=== PATIENT | male | born 1960 | race African-American/Black ===

== ENCOUNTER 2023-06-26 21:28 | Emergency (ER) | payer OTHER, SELFPAY ==
--- NOTE | ~2023-06-26 | XR_ITS ---
EXAMINATION: XR chest 1V portable 06/26/2023 22:04 INDICATION: Chest pain PROCEDURE: AP portable chest COMPARISON: No prior studies for comparison. FINDINGS: There is retrocardiac opacification, most likely atelectasis. The cardiomediastinal silhoue tte is within normal limits. There are no pleural effusions. There is no pneumothorax suspected. IMPRESSION: 1: Retrocardiac infiltrate, most likely atelectasis. Reviewed, dictated and finalized at location A.
--- NOTE | ~2023-06-26 | CT_ITS ---
EXAMINATION: CTA chest abdomen pelvis DATE: 06/26/2023 23:03 CDT INDICATION: Chest pain and difficulty breathing. TECHNIQUE: Computed tomographic angiography (CTA) of the chest, abdomen, and pelvis was performed wit hout and with 100 mL Omnipaque-350 intravenous contrast. The dose-length product was 309.82 mGy-cm. M aximum intensity projection 3D-reconstructions of the aorta and other arteries were constructed by katya krishnan technologist on a separate workstation. COMPARISON: None. FINDINGS: CHEST CTA: There is pneumomediastinum. Small left pleural effusion. Mediastinal gas extends into the left suprac lavicular region. No thoracic lymphadenopathy. Study is technically adequate without evidence for pul monary embolism. There are groundglass opacities in the left lower lobe which may represent atelectas is or pneumonia. ABDOMEN AND PELVIS CTA: No significant vascular abnormality. No lymphadenopathy. There is thickening of the esophagus, suspic ious for esophagitis. The liver, pancreas, adrenal glands and kidneys are unremarkable. Spleen is atr ophic and contains calcified granulomas. Gallbladder is present. No free air or free fluid. No acute bone or joint abnormality. IMPRESSION: 1. Pneumomediastinum. 2: Groundglass opacities left lower lobe which may represent atelectasis or pneumonia. 3: Small left pleural effusion. 4: Esophageal thickening, suspicious for esophagitis. Reviewed, dictated and finalized at location A. IMPRESSION: 1. Pneumomediastinum. 2: Groundglass opacities left lower lobe which may represent atelectasis or pn eumonia. 3: Small left pleural effusion. 4: Esophageal thickening, suspicious for esophagitis.
--- NOTE | ~2023-06-26 | XR_ITS ---
Portable chest x-ray Comparison: 06/26/2023 Clinical History: Shortness of breath Findings: Minimal left pleural effusion present with new patchy left basilar airspace disease. Right lung clear. Cardiomediastinal silhouette is stable. Bones and soft tissues are unremarkable. Impression: Minimal left pleural effusion with left basilar atelectasis versus pneumonia. Reviewed, dictated and finalized at [facility]. Impression: Minimal left pleural effusion with left basilar atelectasis versus pneumonia.
--- NOTE | ~2023-06-26 | XR_ITS ---
Portable chest x-ray Comparison: 06/27/2023 at 12:28 AM Clinical History: Tube placement Findings: Endotracheal tube and NG tube are in satisfactory positions. Minimal left pleural effusion present with retrocardiac airspace consolidation. Cardiomediastinal silhouette is stable. Bones and soft tissues are unremarkable. Impression: Support tubes, as above. Left lower lobe consolidation suspicious for pneumonia versus possibly atelectasis. Minimal left pleural effusion. Reviewed, dictated and finalized at location . Impression: Support tubes, as above. Left lower lobe consolidation suspicious for pneumonia versus possibly atelecta sis. Minimal left pleural effusion.
--- NOTE | ~2023-06-26 | XR_ITS ---
Supine and upright views of the abdomen Clinical history: NG tube placement Findings: NG tube in satisfactory position. Bowel gas pattern is nonspecific. No evidence for obstruc tion or free air. No abnormal mass lesion or calcification is seen. Osseous structures are intact. Impression: NG tube in satisfactory position. Reviewed, dictated and finalized at location . Impression: NG tube in satisfactory position.
--- NOTE | ~2023-06-26 | XR_ITS ---
Portable chest x-ray Comparison: 06/27/2023 at 1:08 AM Clinical History: Line placement Findings: Endotracheal tube, NG tube, and right IJ line are in satisfactory positions. Stable left l ower lobe consolidation and minimal left pleural effusion. Right lung remains clear. No pneumothorax. Cardiomediastinal silhouette is stable. Bones and soft tissues are unremarkable. Impression: Support tubes, as above. Stable left lower lobe consolidation, suspicious for pneumonia. Minimal left pleural effusion. Reviewed, dictated and finalized at location . Impression: Support tubes, as above. Stable left lower lobe consolidation, suspicious for pneumonia. Minimal left pleural effusion.
[2023-06-26 21:32] VITALS: BP 139/104; PULSE 81; RESP 14; TEMP 36.1
--- NOTE | 2023-06-26 21:35 | ECG_ITS ---
Measurements Intervals [place] Rate: 78 P: 69 [place]: 129 QRS: 23 QRSD: 86 T: 47 QT: 401 QTc: 458 Interpretive Statements SINUS RHYTHM LEFT ATRIAL ENLARGEMENT VOLTAGE CRITERIA FOR LVH NONSPECIFIC ST-T WAVE ABNORMALITY- LATERAL LEADS BASELINE ARTIFACT- II, III, AVF, V5-V6 BORDERLINE ECG NO PREVIOUS ECG AVAILABLE FOR COMPARISON Electronically Signed On 06-27-2023 6:20:38 CDT by David Hernandez D.O.
[2023-06-26] MEDS: ASPIRIN 81 MG CHEWABLE TABLET 324 MG PO (21:43)
[2023-06-26 21:57] LABS: Basophils Absolute Auto 0.1 K/mm3 (0.0-0.1); Basophils Percent Auto 0.4 % (0.2-1.2); Eosinophils Absolute Auto 0.2 K/mm3 (0-0.3); Hematocrit 35.3 % (42.0-52.0); Hemoglobin 11.1 g/dL (14.0-18.0); Immature Granulocyte Absolute 0.09 K/mm3 (0.00-0.031); Immature Granulocyte Percent A 0.6 % (0-0.5); Lymphocytes Absolute Auto 4.13 K/mm3 (0.9-3.2); Lymphocytes Percent Auto 26.4 % (18.3-44.2); Mean Corpuscular HGB Conc 31.4 g/dl (32-36); Mean Corpuscular Hemoglobin 25.8 pg (26-34); Mean Corpuscular Volume 81.9 fl (80-100); Mean Platelet Volume 10.4 fl (7.4-10.4); Monocytes Absolute Auto 1.1 K/mm3 (0.1-0.6); Monocytes Percent Auto 7.2 % (2.6-8.5); Neutrophils Absolute Auto 10.1 K/mm3 (1.3-6.7); Neutrophils Percent Auto 64.4 % (45.5-73.1); Platelet Count Result 248 k/mm3 (150-375); Red Blood Count 4.31 M/mm3 (4.6-6.20); Red Cell Distribution Width 21.1 % (11.5-14.5); White Blood Count 15.7 K/mm3 (4.5-10.0)
[2023-06-26 22:00] VITALS: O2SAT 100
[2023-06-26 22:09] LABS: Alanine Aminotransferase 24 U/L (6-50); Albumin Level 4.6 g/dL (3.5-5.1); Alkaline Phosphatase 98 U/L (38-126); Anion Gap 9 mmol/L (8-16); Aspartate Amino Transferase 45 U/L (17-59); Bilirubin,Total 1.4 mg/dL (0.2-1.3); Blood Urea Nitrogen 18 mg/dL (9-20); Calcium 9.6 mg/dL (8.4-10.2); Carbon Dioxide 25 mmol/L (22-30); Chloride 104 mmol/L (98-107); Estimated CRCL calculation 88 ml/min; Estimated Glomerular Filt Rate > 60; Glucose 159 mg/dL (65-110); Lipase 89 U/L (23-300); Potassium 3.9 mmol/L (3.4-5.0); Sodium 138 mmol/L (137-145)
[2023-06-26 22:12] LABS: INR 1.1; Partial Thromboplastin Time 24.4 Seconds (22.3-36.8); Prothrombin Time 14.4 Seconds (11.1-14.7)
[2023-06-26 22:19] LABS: Troponin I 0.015 ng/mL (0.000-0.034)
[2023-06-26 22:33] VITALS: O2SAT 100
--- NOTE | 2023-06-26 22:47 | ED.GENADULT ---
HPI - General Adult General Chief complaint: Chest Pain Stated complaint: nausea, vomiting, bright red vomit Time Seen by Provider: 06/26/23 21:43 History of Present Illness HPI narrative: This is a 62-year-old male presenting ED with chief complaint of chest pain, difficulty breathing, and hematemesis. Symptoms started earlier today. patient denies fevers chills productive cough, lower extremity edema. Patient denies history of cirrhosis or liver failure. No history of GI bleed. No anticoagulants or blood thinners. Patient is a daily drinker. last drink yesterday. Related Data Allergies Allergy/AdvReac Type Severity Reaction Status Date / Time No Known Allergies Allergy Verified 06/26/23 21:40 Exam Narrative: APPEARANCE: Patient appears-ill, diaphoretic Head: atraumatic. EYES: EOMI, NOSE: Atraumatic NECK: Trachea midline RESPIRATORY: mild tachypnea clear lung sounds CARDIOVASCULAR: tachycardic, no peripheral edema ABDOMINAL: soft nontender MUSCULOSKELETAl: No obvious deformities NEURO: Alert. Moving 4/4 extremities SKIN:: diaphoretic PSYCHIATRIC: Normal affect Course Vital Signs Vital signs: Vital Signs Temperature 97 F L 06/26/23 21:32 Pulse Rate 81 06/26/23 21:32 Respiratory Rate 14 06/26/23 21:32 Blood Pressure 139/104 H 06/26/23 21:32 Temperature 97 F L 06/26/23 21:32 Pulse Rate 81 06/26/23 21:32 Respiratory Rate 14 06/26/23 21:32 Blood Pressure 139/104 H 06/26/23 21:32 Pulse Oximetry 100 06/26/23 22:33 Oxygen Delivery Room Air 06/26/23 22:33 Medical Decision Making [facility] Narrative Medical decision making narrative: -Course: 62-year-old male presenting with hematemesis chest pain difficulty breathing. Patient is ill-appearing. Stat CTA showed pneumomediastinum. Presentation concerning for ruptured esophagus. Patient given fluid resuscitation, pip/tazo, vancomycin and fluconazole. Patient given pain medication and anxiolysis. Patient's heart rate and continue to increase until is in the 140s. Patient is becoming agitated and has ripped out several IVs. Decision was made to intubate. Patient was intubated without complication. A right internal jugular central catheter was placed. Patient will be flown to [facility] for cardiothoracic evaluation. family was updated on the patient's critical condition -DDX includes but is not limited to: esophageal rupture /varices/ gerd, pneumonia, PE, ACS, dissection, -Co-morbidities complicating care: alcoholism drug use -Social determinants of health: daily drinker, lives with family, history of cocaine use but denies recent use -Hx from independent Sources: @bedside -Independent interpretation of studies: White count 15.7. Hemoglobin 11. Lactic 4.9. CT chest abdomen pelvis showed pneumomediastinum with left pleural effusion. Multiple chest x-rays confirming tube locations. Worsening infiltrates on the left. -Discussion of Management/Consultants: [facility]- Giorgio CT sx - Declined due to pt volume ANA PAULA Dudley - Declined due to pt volume Liudmila Roland - Accepted. -Interventions: 2 L normal saline, Dilaudid, Pepcid, reglan, piptazo, vancomycin, fluconazole etomidate, rocuronium, Dilaudid, Ativan fentanyl and Versed drip -Shared decision making / Disposition: flown emergently to [facility] for CT evaluation Vital Signs Vital Signs: Vital Signs Temperature 97 F L 06/26/23 21:32 Pulse Rate 81 06/26/23 21:32 Respiratory Rate 14 06/26/23 21:32 Blood Pressure 139/104 H 06/26/23 21:32 Temperature 97 F L 06/26/23 21:32 Pulse Rate 81 06/26/23 21:32 Respiratory Rate 14 06/26/23 21:32 Blood Pressure 139/104 H 06/26/23 21:32 Pulse Oximetry 100 06/26/23 22:33 Oxygen Delivery Room Air 06/26/23 22:33 Lab Data 06/26/23 21:49 06/26/23 21:49 Labs: Lab Results 06/26/23 Range/Units 21:49 WBC 15.7 H (4.5-10.0) K/mm3 RBC 4.31 L (
[2023-06-26] MEDS: HYDROmorphone HCL INJ (*CRX) 2 MG/ML VIAL 0.5 MG IV PUSH (23:05)
[2023-06-26] MEDS: METOCLOPRAMIDE HCL INJ 10 MG/2 ML VIAL IV PUSH (23:08)
[2023-06-26] MEDS: PANTOPRAZOLE SODIUM IV 40 MG VIAL 80 MG IV PUSH (23:08)
[2023-06-26 23:11] LABS: Ethanol < 10 mg/dL (<10)
[2023-06-26 23:14] LABS: Magnesium 1.9 mg/dL (1.6-2.3); Phosphorus 2.9 mg/dL (2.5-4.5)
[2023-06-26 23:21] LABS: NT Pro B Type Natriuretic Pept 97 pg/mL (19.9-100)
[2023-06-26] MEDS: SODIUM CHLORIDE 0.9% IV 2,000 ML 999 ML IV CONT (23:31)
[2023-06-26] MEDS: PIPERACILLN/TAZ 3.375GM/NS50ML 3.375 GM/50 ML BAG IVPB (23:33)
--- NOTE | 2023-06-26 23:39 | PC.NURSE ---
2330 Pt given and additional 0.5 mg of Dilaudid via IV push per Dr. Rivera verbal order. 2330 pt given an additional 1 Liter of NS than what is documented in the MAR. This RN verified with Dr. Rivera that the patient is to receive 3 L total of NS. 3 L are running at this time through pt's 18 g IV in the left forearm.
[2023-06-26 23:43] VITALS: BP 108/83; PULSE 118; RESP 26; O2SAT 96
[2023-06-26 23:51] LABS: Lactic Acid Reflex 4.9 mmol/L (0.7-2.0)
--- NOTE | 2023-06-26 23:55 | PC.NURSE ---
2350 Pt still reporting 10/10 chest pain, 1 mg of dilaudid administered via IV push per Dr. Rivera verbal order.
[2023-06-27] MEDS: FLUCONAZOLE 400 MG/NACL 200 ML 400 MG/200 ML BAG 100 MG IVPB (00:09)
--- NOTE | 2023-06-27 00:41 | PC.NURSE ---
0015 2 mg of ativan administered IV psuh per Dr. Rivera verbal order.
[2023-06-27 00:48] LABS: MRSA (PCR) NOT DETECTED (NOT DETECTE)
--- NOTE | 2023-06-27 01:10 | PC.NURSE ---
Decision to intubate pt made by Dr. Rivera at 0055. 0058 20 mg Etomidate administered IV push via Dr. Rivera verbal order. 0058 100 mg Rocuronium administered IV push via Dr. Rivera verbal order. 0100 Pt is intubated, 7.5 ETT, 22 at the lip, positive color change, equal chest rise and fall. 0101 OG tube placed by Dr. Rivera. 0103 2 mg Ativan and 1 mg Dilaudid administered IV push via Dr. Rivera verbal order. 0104 River catheter placed.
--- NOTE | 2023-06-27 01:25 | PC.NURSE ---
Called Liudmila BALLESTEROS to give an update on pt. Spoke with Gita and informed her the pt is intubated, that a central line has been placed, and pt will be given a fentanyl and versed drip.
[2023-06-27 01:32] VITALS: PULSE 137; RESP 14
[2023-06-27] MEDS: FENTANYL 2,500MCG/NS250ML(*CRX 2,500 MCG/250 ML BAG IV CONT (01:32)
[2023-06-27 01:35] VITALS: PULSE 126; RESP 16
[2023-06-27] MEDS: MIDAZOLAM 100MG/NS 100ML(*CRX) 100 MG/100 ML BAG IV CONT (01:35)
[2023-06-27 01:42] VITALS: BP 139/104; PULSE 134; RESP 17; TEMP 36.3; O2SAT 100
[2023-06-27 01:44] VITALS: PULSE 132; RESP 17
[2023-06-27 01:45] VITALS: PULSE 132; RESP 17
[2023-06-27 01:59] VITALS: BP 139/104; PULSE 136; RESP 14; O2SAT 100
[2023-06-27 02:31] LABS: Reflex Lactic Acid Yes or No Add Lactic
--- NOTE | 2023-08-09 19:04 | ED.GENADULT ---
HPI - General Adult General Chief complaint: Chest Pain Stated complaint: nausea, vomiting, bright red vomit Time Seen by Provider: 06/26/23 21:43 Related Data Allergies Allergy/AdvReac Type Severity Reaction Status Date / Time No Known Allergies Allergy Verified 06/26/23 21:40 Course Vital Signs Vital signs: Vital Signs Temperature 97 F L 06/26/23 21:32 Pulse Rate 81 06/26/23 21:32 Respiratory Rate 14 06/26/23 21:32 Blood Pressure 139/104 H 06/26/23 21:32 Temperature 97.3 F L 06/27/23 01:42 Pulse Rate 136 H 06/27/23 01:59 Respiratory Rate 14 06/27/23 01:59 Blood Pressure 139/104 H 06/27/23 01:59 Pulse Oximetry 100 06/27/23 01:59 Oxygen Delivery Mechanical Ventilation 06/27/23 01:00 Fraction of Inspired Oxygen 50 06/27/23 01:00 Procedures Central Line Placement Right IJ: Central Line Date: 06/26/23 Performed Emergently - Given emergent patient condition, temporal constraints may have precluded informed consent.: Yes Time Out Performed: Yes Patient Placed on Monitor/Pulse Ox: Yes Max. Sterile Barrier Technique: Caps, large sterile sheet and hand hygiene Central Line Prep: 2% chlorhexidine scrub Technique: US-Guided Ultrasound Used for Placement: Yes Central Line Lumen Inserted: triple Post Procedure: sutured in place, good blood return, all ports aspirated, flushed, capped and sterile dressing applied Post Procedure X-Ray: tip of catheter in good position and no pneumothorax seen Patient Tolerated Procedure: well Complications: none Intubation Intubation #1: Intubation Date: 06/26/23 Time out performed: Yes sedative: Etomidate Mg Given: 20 paralytic: Rocuronium Mg Given: 100 Laryngoscope: Haim Tube Size (cm): 7.5 Method of Intubation: orotracheal Number of Attempts: 1 Tube Secured Depth (cm): 23 Tube Secured Location: lips Tube Placement Confirmation: visualized tube passing through cords Patient Tolerated Procedure: well Intubation Complications: none Medical Decision Making Vital Signs Vital Signs: Vital Signs Temperature 97 F L 06/26/23 21:32 Pulse Rate 81 06/26/23 21:32 Respiratory Rate 14 06/26/23 21:32 Blood Pressure 139/104 H 06/26/23 21:32 Temperature 97.3 F L 06/27/23 01:42 Pulse Rate 136 H 06/27/23 01:59 Respiratory Rate 14 06/27/23 01:59 Blood Pressure 139/104 H 06/27/23 01:59 Pulse Oximetry 100 06/27/23 01:59 Oxygen Delivery Mechanical Ventilation 06/27/23 01:00 Fraction of Inspired Oxygen 50 06/27/23 01:00 Lab Data 06/26/23 21:49 06/26/23 21:49 Labs: Lab Results 06/26/23 06/26/23 06/26/23 Range/Units 21:49 23:23 23:32 WBC 15.7 H (4.5-10.0) K/mm3 RBC 4.31 L (4.6-6.20) M/mm3 Hgb 11.1 L (14.0-18.0) g/dL Hct 35.3 L (42.0-52.0) % MCV 81.9 (80-100) fl MCH 25.8 L (26-34) pg MCHC 31.4 L (32-36) g/dl RDW 21.1 H (11.5-14.5) % Plt Count 248 (150-375) k/mm3 MPV 10.4 (7.4-10.4) fl Immature Gran % (Auto) 0.6 H (0-0.5) % Neut % (Auto) 64.4 (45.5-73.1) % Lymph % (Auto) 26.4 (18.3-44.2) % [place] % (Auto) 7.2 (2.6-8.5) % Eos % (Auto) 1.0 (0-4.4) % Baso % (Auto) 0.4 (0.2-1.2) % Lymph # (Auto) 4.13 H (0.9-3.2) K/mm3 [place] # (Auto) 1.1 H (0.1-0.6) K/mm3 Eos # (Auto) 0.2 (0-0.3) K/mm3 Baso # (Auto) 0.1 (0.0-0.1) K/mm3 Abs Immat Gran (auto) 0.09 H (0.00-0.031) K/mm3 Absolute Neuts (auto) 10.1 H (1.3-6.7) K/mm3 Absolute Nucleated RBC 0.000 (0.0-0.012) K/mm3 Nucleated RBC % 0.0 (0.0-0.2) % PT 14.4 (11.1-14.7) Seconds INR 1.1 APTT 24.4 (22.3-36.8) Seconds Sodium 138 (137-145) mmol/L Potassium 3.9 (3.4-5.0) mmol/L Chloride 104 (98-107) mmol/L Carbon Dioxide 25 (22-30) mmol/L
== END 2023-06-27 01:59 | disposition short-term general hospital (02) ==
PROVIDERS: Emergency Provider Emergency Medicine
DX: K22.3 Perforation of esophagus (principal); R94.31 Abnormal electrocardiogram [ECG] [EKG]; R91.8 Other nonspecific abnormal finding of lung field; J98.2 Interstitial emphysema
CPT/HCPCS: 31500; 36415; 36556; 71045; 71275; 74174; 80053; 80307; 83605; 83690; 83735; 83880; 84100; 84484; 85025; 85610; 85730; 86850; 86900; 86901; 87641; 93005; 96365; 96375; 99285; A9270; C1751; C9113; J1170; J1450; J2060; J2250; J2543; J2765; J3010; J7030; Q9967

== ENCOUNTER 2023-10-10 14:11 | Emergency (ER) | payer OTHER, SELFPAY ==
[2023-10-10] VITALS (7 sets, daily range): BP systolic 128–144; BP diastolic 96–105; PULSE 104–110; RESP 20–26; TEMP 36.2; O2SAT 95–100
--- NOTE | ~2023-10-10 | CT_ITS ---
EXAMINATION: CT diagnostic chest w con DATE: 10/10/2023 18:02 INDICATION: Loculated effusion TECHNIQUE: Computed tomography (CT) of the chest was performed with 100 mL Omnipaque-350 intravenous contrast. Automated exposure control and iterative reconstruction technique were employed. The dose-l ength product was 144.86 mGy-cm. COMPARISON: X-ray chest, same date; CTA cap 06/26/2023. FINDINGS: CHEST: Thoracic aorta: No significant dilation or calcification. Lung parenchyma and airways: Left hilar, segmental inferior upper lobe, and lobar lower lobe consolid ation. Subsegmental foci of consolidation in the peripheral right lower lobe and posterior right uppe r lobe. Patent airways. Left lower lobe air bronchograms. Thoracic inlet, axillae and chest wall: No thyroid mass. Peripherally enhancing, tubular low density in the posterolateral chest wall between the left eighth and ninth ribs, extending from the lobulated portion of the left pleural collection, to the skin surface. No axillary lymphadenopathy. Mediastinum: Multiple enlarged mediastinal and bilateral hilar lymph nodes. Calcified subcarinal lymp h node. Heart and pericardium: Mild cardiomegaly. No pericardial effusion. Coronary artery calcifications: Mild. Pleura: Small right and moderate left pleural fluid collections with peripheral enhancement. Multiple gas bubbles in the left pleural collection. Lobular margin along the lateral aspect of the left pleu ral collection extending towards the chest wall. Upper abdomen: No significant finding. Thoracic bones: No acute osseous finding in the chest. IMPRESSION: Segmental left upper lobe and lobar left lower lobe consolidation with scattered subsegmental areas o f consolidation in the right lung, concerning for multifocal pneumonia. Moderate left and small right pleural effusions with peripheral enhancement. Empyema should be consid ered in the differential. Fluid-filled and peripherally enhancing skin tract extending from the left pleural collection to the skin surface, may represent a spontaneous drainage site or procedure tract. The gas within the left p leural collection may be secondary to infection or recent procedure. Mediastinal lymphadenopathy. Reviewed, dictated and finalized at location K. IMPRESSION: Segmental left upper lobe and lobar left lower lobe consolidation with scattere d subsegmental areas of consolidation in the right lung, concerning for multifo nelida pneumonia. Moderate left and small right pleural effusions with peripheral enhancement. Em pyema should be considered in the differential. Fluid-filled and peripherally enhancing skin tract extending from the left pleu ral collection to the skin surface, may represent a spontaneous drainage site o r procedure tract. The gas within the left pleural collection may be secondary to infection or recent procedure. Mediastinal lymphadenopathy.
--- NOTE | ~2023-10-10 | XR_ITS ---
EXAMINATION: XR chest 2V DATE: 10/10/2023 14:46 INDICATION: Shortness of breath. Recent left chest tube removal TECHNIQUE: PA and lateral views of the chest were obtained. COMPARISON: Chest radiograph dated 06/27/2023 FINDINGS: Opacities in the left mid and lower lung zone which include a small left pleural effusion with locula carla component along the posterior left mid to lower lung zone on the lateral projection. There are al so patchy airspace opacities consistent with associated atelectasis and/or pneumonia. Significant sma ller right pleural effusion with mild streaky right basilar atelectasis. No pneumothorax. Heart size is normal. IMPRESSION: 1. Small bilateral pleural effusions larger and with likely loculated component on the left foot 2. Patchy airspace opacities in the left mid and lower lung zone which could represent associated ate lectasis and/or pneumonia. Reviewed, dictated and finalized at location B. IMPRESSION: 1. Small bilateral pleural effusions larger and with likely loculated component on the left foot 2. Patchy airspace opacities in the left mid and lower lung zone which could re present associated atelectasis and/or pneumonia.
--- NOTE | 2023-10-10 14:21 | ECG_ITS ---
Test Date: 2023-10-10 14:25:03 Measurements Intervals [place] Rate: 102 P: 64 VT: 135 QRS: 14 QRSD: 86 T: 35 QT: 347 QTc: 452 Interpretive Statements SINUS TACHYCARDIA WITH OCCASIONAL SUPRAVENTRICULAR PREMATURE COMPLEXES BI ATRIAL ENLARGEMENT [-0.15mV P-WAVE IN V1/V2] BORDERLINE ECG No previous ECG available for comparison Electronically Signed On 10-11-2023 07:17:46 CDT by Chu Amaya M.D.
[2023-10-10 14:49] LABS: Basophils Percent Auto 0.4 % (0.2-1.2); Eosinophils Absolute Auto 0.1 K/mm3 (0-0.3); Eosinophils Percent Auto 0.5 % (0-4.4); Hematocrit 34.7 % (42.0-52.0); Hemoglobin 10.9 g/dL (14.0-18.0); Immature Granulocyte Absolute 0.03 K/mm3 (0.00-0.031); Immature Granulocyte Percent A 0.3 % (0-0.5); Lymphocytes Absolute Auto 2.49 K/mm3 (0.9-3.2); Lymphocytes Percent Auto 25.6 % (18.3-44.2); Mean Corpuscular HGB Conc 31.4 g/dl (32-36); Mean Corpuscular Hemoglobin 26.8 pg (26-34); Mean Corpuscular Volume 85.3 fl (80-100); Mean Platelet Volume 9.4 fl (7.4-10.4); Monocytes Absolute Auto 0.7 K/mm3 (0.1-0.6); Monocytes Percent Auto 7.6 % (2.6-8.5); Neutrophils Absolute Auto 6.4 K/mm3 (1.3-6.7); Neutrophils Percent Auto 65.6 % (45.5-73.1); Platelet Count Result 516 k/mm3 (150-375); Red Blood Count 4.07 M/mm3 (4.6-6.20); Red Cell Distribution Width 18.6 % (11.5-14.5); White Blood Count 9.7 K/mm3 (4.5-10.0)
[2023-10-10 14:58] LABS: Alanine Aminotransferase 261 U/L (6-50); Alkaline Phosphatase 377 U/L (38-126); Anion Gap 5 mmol/L (4-12); Aspartate Amino Transferase 152 U/L (17-59); Bilirubin,Total 0.6 mg/dL (0.2-1.3); Blood Urea Nitrogen 12 mg/dL (9-20); Carbon Dioxide 28 mmol/L (22-30); Chloride 103 mmol/L (98-107); Estimated CRCL calculation 92 ml/min; Estimated Glomerular Filt Rate > 60; Glucose 139 mg/dL (65-110); Potassium 4.3 mmol/L (3.4-5.0); Sodium 136 mmol/L (137-145)
[2023-10-10 17:29] LABS: Lactic Acid Reflex 1.8 mmol/L (0.7-2.0)
[2023-10-10] MEDS: cefTRIAXone 2 GM/NS 100 ML 2 GM/100 ML BAG IVPB (18:06)
[2023-10-10 18:15] LABS: Influenza A QL RT-PCR Negative (Negative); Influenza B QL RT-PCR Negative (Negative); RSV RNA, RT-PCR Negative (Negative); SARS-CoV-2 RNA PCR Negative (Negative)
--- NOTE | 2023-10-10 18:32 | ED.GENADULT ---
HPI - General Adult General Chief complaint: Shortness of Breath/Dyspnea Stated complaint: recent chest tube dyspnea Time Seen by Provider: 10/10/23 16:23 History of Present Illness HPI narrative: 62-year-old male presents emergency department for evaluation for worsening shortness of breath. Patient has had a esophageal rupture in June and had an extended stay at [facility], patient was then transferred to [place]. While patient was emergency he did have a left-sided thoracostomy tube. Patient had the thoracostomy tube removed at [place] approximately 2 weeks ago. Patient states he was discharged on Saturday. Patient states this being discharged he has had worsening left-sided chest pain and shortness of breath. Patient has been changing his dressing frequently but states he has had. On discharge from the thoracostomy site Related Data Home Medications Medication Instructions Recorded Confirmed amoxicillin 500 mg capsule mg 10/10/23 10/10/23 atenolol 25 mg tablet mg 10/10/23 ciprofloxacin HCl 500 mg tablet mg 10/10/23 magnesium oxide 400 mg (241.3 mg mg 10/10/23 magnesium) tablet pantoprazole 40 mg tablet,delayed mg PO 10/10/23 release pyridoxine (vitamin B6) 50 mg mg 10/10/23 tablet thiamine HCl (vitamin B1) 100 mg mg 10/10/23 tablet (Vitamin B-1) zinc sulfate 50 mg zinc (220 mg) mg 10/10/23 capsule Allergies Allergy/AdvReac Type Severity Reaction Status Date / Time No Known Allergies Allergy Verified 10/10/23 17:53 Review of Systems Review of Systems: All systems reviewed & are unremarkable except as noted in HPI and below Exam Narrative: APPEARANCE: Well appearing, no pain, no distress, well-nourished. HEAD: normocephalic, atraumatic. EYES: PERRLA/EOMI, conjunctivae clear. NOSE: Normal no drainage EARS:TMS clear with good light reflex. THROAT: Pharynx clear, no exudate. NECK: Supple. No adenopathy, no masses. RESPIRATORY: Airway patent, respirations nonlabored. Clear to auscultation bilaterally, no rales, rhonchi, wheezing. CARDIOVASCULAR: Regular rate and rhythm without murmurs rubs or gallops. ABDOMINAL: Soft, nontender, nondistended, normal bowel sounds MUSCULOSKELETAL: Moves all extremities. Strength/ROM intact, No edema, No calf tenderness. NEURO: Alert. Cranial nerves II through XII intact. Good gait. Good coordination SKIN: Prelim discharge from chest tube site on left chest, no crepitus Course Vital Signs Vital signs: Vital Signs Temperature 97.2 F L 10/10/23 14:16 Pulse Rate 107 H 10/10/23 14:16 Respiratory Rate 22 H 10/10/23 14:16 Blood Pressure 136/98 H 10/10/23 14:16 Pulse Oximetry 98 10/10/23 14:16 Oxygen Delivery Room Air 10/10/23 14:16 Temperature 97.2 F L 10/10/23 14:16 Pulse Rate 106 H 10/10/23 17:03 Respiratory Rate 26 H 10/10/23 17:03 Blood Pressure 128/96 H 10/10/23 17:03 Pulse Oximetry 100 10/10/23 17:03 Oxygen Delivery Room Air 10/10/23 17:00 Medical Decision Making MDM Narrative Medical decision making narrative: 62-year-old male presents emergency department for evaluation of worsening left-sided chest pain. Patient is afebrile with no leukocytosis and a stable hemoglobin of 10.9. Patient does have some mild elevations in his transaminases. Patient was negative for influenza RSV and for COVID. Chest x-ray showed concern for loculated effusion. CT with contrast was ordered and did confirm empyema. I discussed the case with the hospitalist at [facility] and patient was accepted for transfer. Hospitalist stated that there was an older CT scan already confirming a worsening empyema. Updated the patient on the results of the workup and plan for transfer. All questions concerns were addressed. Prior to transfer both the wound and blood were cultured and patient was started on Rocephin is a throw and vancomycin. Differential Diagnosis Differential Diagnosis: Pneumonia, COPD, pneumothorax, pulmonary embolism
[2023-10-10] MEDS: AZITHROMYCIN 500 MG/NS 250 ML 500 MG/250 ML BAG 250 MG IVPB (18:50)
[2023-10-10 20:09] LABS: MRSA (PCR) DETECTED (NOT DETECTE)
== END 2023-10-10 19:15 | disposition short-term general hospital (02) ==
PROVIDERS: Emergency Medicine; Emergency Provider Emergency Medicine; PCP Family Medicine
DX: J86.9 Pyothorax without fistula (principal); Z20.822 Contact with and (suspected) exposure to COVID-19; R91.8 Other nonspecific abnormal finding of lung field; R00.0 Tachycardia, unspecified; I49.1 Atrial premature depolarization
CPT/HCPCS: 36415; 71046; 71260; 80053; 83605; 85025; 87040; 87070; 87077; 87181; 87205; 87637; 87641; 93005; 96365; 96367; 99285; J0456; J0696; Q9967

== ENCOUNTER 2023-11-07 21:40 | Emergency (ER) | payer OTHER, SELFPAY ==
[2023-11-07] VITALS (11 sets, daily range): BP systolic 92; BP diastolic 78; PULSE 100–132; RESP 14–22; TEMP 36.1; O2SAT 100
--- NOTE | ~2023-11-07 | XR_ITS ---
EXAMINATION: XR chest port-a-cath/central DATE: 11/08/2023 03:14 INDICATION: Central line placement TECHNIQUE: frontal view of the chest was obtained. COMPARISON: Chest radiograph and CT dated 11/07/2023 FINDINGS: Endotracheal tube tip 2.1 cm above the reggie. Left internal jugular central venous catheter with dis salvador tip at the cephalad-most superior vena cava with likely along the lateral wall. Improving aeration in the left mid and upper lungs with decreasing size of a still large left pleural effusion with associated atelectasis. Persistent small right pleural effusion. Diffuse increased int erstitial pattern throughout the right lung visualized portion of the left lung most likely increasin g pulmonary edema although differential includes pneumonia. Mild cardiomegaly. IMPRESSION: 1. Left internal jugular central venous catheter with distal tip in the proximal superior vena cava a long the lateral wall. If extended placement is anticipated would consider withdrawal by 1-[address] [place]ana the tip at the junction of the left brachiocephalic vein and superior vena cava to reduce risk of potential pressure erosion at the wall of the superior vena cava. 2. Unchanged small right and decreasing still large left pleural effusions with improving aeration in the left mid and upper lung. 3. Opacities throughout both lungs which could represent pulmonary edema, pneumonia or likely combina tion thereof. 4. Cardiomegaly . Reviewed, dictated and finalized at location A. IMPRESSION: 1. Left internal jugular central venous catheter with distal tip in the proxima l superior vena cava along the lateral wall. If extended placement is anticipat ed would consider withdrawal by 1-[address] the tip at the junction of the left brachiocephalic vein and superior vena cava to reduce risk of potential pr essure erosion at the wall of the superior vena cava. 2. Unchanged small right and decreasing still large left pleural effusions with improving aeration in the left mid and upper lung. 3. Opacities throughout both lungs which could represent pulmonary edema, pneum onia or likely combination thereof. 4. Cardiomegaly .
--- NOTE | ~2023-11-07 | CT_ITS ---
EXAMINATION: CTA chest PE protocol DATE: 11/07/2023 23:41 INDICATION: intubated; elev dimer; empyema TECHNIQUE: Computed tomography angiography (CTA) of the chest was performed with 100 mL Omnipaque-350 intravenous contrast timed to evaluate the pulmonary arteries. Coronal maximum intensity projection 3D-reconstructions were created by the technologist. The dose-length product (DLP) was 236.95 mGy-cm. Automated exposure control and iterative reconstruction technique were employed. COMPARISON: 10/10/2023. FINDINGS: Exam limited by motion artifact predominantly in the right lung and beam hardening from arm down posi tioning. Lung parenchyma and airways: Complete left lung consolidation with volume loss. Patchy areas of conso lidation, tree-in-bud opacities and centrilobular nodules in the right lung. Scattered airway debris in the right lung. Opacification of most of the left lung bronchial tree. The endotracheal tube termi nates 5 mm above the reggie. Pleura: Mild bilateral pleural thickening and enhancement. Small bilateral pleural fluid collections. Thoracic inlet, axillae and chest wall: Persistent soft tissue swelling over the left lateral chest. Thoracic aorta: No significant dilation. No dissection. Mediastinum: Mediastinal and right hilar lymphadenopathy. The left hilar nodes are obscured by atelec tatic lung. Heart and pericardium: Mild cardiomegaly. Coronary artery calcifications: Absent. Upper abdomen: No significant finding. Bones: No acute osseous finding. Partial left seventh rib resection. Pulmonary arteries: Study quality: Motion artifact limits evaluation of the right lung subsegmental p ulmonary arteries. No pulmonary emboli detected. IMPRESSION: Pulmonary opacities in the right lung most consistent with infection. Combination of atelectasis and suspected infectious consolidation results in complete left lung opacification. Airway secretions wit h opacification of most of the left bronchial tree concerning for mucous plugging. Small bilateral pleural effusions with pleural thickening and enhancement concerning for empyema. Mediastinal lymphadenopathy. Motion limits evaluation of the right lung subsegmental arteries. No pulmonary embolus detected in th e remaining adequately visualized pulmonary arteries. Persistent soft tissue swelling over the left lateral chest. Reviewed, dictated and finalized at location K. IMPRESSION: Pulmonary opacities in the right lung most consistent with infection. Combinati on of atelectasis and suspected infectious consolidation results in complete le ft lung opacification. Airway secretions with opacification of most of the left bronchial tree concerning for mucous plugging. Small bilateral pleural effusions with pleural thickening and enhancement brandyn rning for empyema. Mediastinal lymphadenopathy. Motion limits evaluation of the right lung subsegmental arteries. No pulmonary embolus detected in the remaining adequately visualized pulmonary arteries. Persistent soft tissue swelling over the left lateral chest.
--- NOTE | ~2023-11-07 | CT_ITS ---
EXAMINATION: CT brain wo con DATE: 11/07/2023 23:33 INDICATION: AMS; hypertensive . TECHNIQUE: Computed tomography (CT) of the head was performed without intravenous contrast. The mA wa s adjusted according to patient size. Iterative reconstruction technique was employed. The dose-lengt h product was 529.67 mGy-cm. COMPARISON: None. FINDINGS: No acute intracranial hemorrhage or extra-axial fluid collection. No hydrocephalus, mass, or herniation. Hypodensity in the left posterior parietal lobe, with loss of tan-white junction and the suggestion of volume loss. No significant associated gyral swelling. Unremarkable dural venous sinus attenuation. No acute osseous abnormality. Right mastoid fluid, the remaining aerated spaces are clear. Atherosclerotic intracranial calcifications. Mild bilateral basal ganglia calcification. 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 No compari sons are available. MR of the brain would be helpful for more accurate timing. Otherwise, no concerning intracranial process detected. Reviewed, dictated and finalized at location K. IMPRESSION: Presumably chronic left posterior parietal infarct with early changes of enceph alomalacia. No comparisons are available. MR of the brain would be helpful for more accurate timing. Otherwise, no concerning intracranial process detected.
--- NOTE | ~2023-11-07 | XR_ITS ---
EXAMINATION: XR chest 1V portable Exam Date/Time: 11/07/2023 22:15 CDT HISTORY: intubated, AMS; confirm tube placement Comparison: 10/10/2023. RESULT: Lines, tubes, and devices: Endotracheal tube terminating 3.4 cm above the reggie. Lungs and pleura: Complete opacification of the left hemithorax. Mild reticular opacities and patchy ground glass opacities in the left lung. Mild right costophrenic angle blunting. Cardiomediastinal silhouette: Stable. Other: No acute osseous or upper abdominal finding. IMPRESSION: Endotracheal tube terminates 3.4 cm above the reggie. Complete left hemithorax opacification, may represent atelectasis with mucous plugging. Large left pl eural effusion could appear similarly. Interstitial edema. Small right pleural effusion . Reviewed, dictated and finalized at [facility]. IMPRESSION: Endotracheal tube terminates 3.4 cm above the reggie. Complete left hemithorax opacification, may represent atelectasis with mucous p lugging. Large left pleural effusion could appear similarly. Interstitial edema. Small right pleural effusion .
--- NOTE | 2023-11-07 21:44 | ECG_ITS ---
Test Date: 2023-11-07 21:48:08 Measurements Intervals [place] Rate: 129 P: 67 [place]: 127 QRS: 70 QRSD: 86 T: 78 QT: 330 QTc: 484 Interpretive Statements SINUS TACHYCARDIA WITH OCCASIONAL SUPRAVENTRICULAR PREMATURE COMPLEXES LEFT ATRIAL ABNORMALITY VOLTAGE CRITERIA FOR LVH NONSPECIFIC ST & T-WAVE ABNORMALITY- INF/LAT LEADS ABNORMAL ECG Compared to ECG 10/10/2023 14:25:03 Left ventricular hypertrophy now present Electronically Signed On 11-08-2023 06:21:44 CDT by David Hernandez D.O.
[2023-11-07 21:45] LABS: Glucose Point of Care 199 mg/dl (65-105)
--- NOTE | 2023-11-07 21:46 | ED.SOB ---
HPI - SOB/Dyspnea General Chief Complaint: Shortness of Breath/Dyspnea Stated Complaint: APENIC WITH A PULSE Time Seen by Provider: 11/07/23 21:42 Source: family ( Dionne) and EMS Mode of arrival: EMS Limitations: physical limitation and clinical condition History of Present Illness HPI Narrative: Patient presents via EMS intubated and being assisted with ventilation by BVM and with IO in lower extremity. History of respiratory issues (initially unknown by EMS). Lives with family but unclear time course. Reportedly on home O2. Found to be agonally breathing. 7.5 ETT placed by EMS at 21cm at the teeth after receiving 20mg etomidate and 10mg Versed. Initial BP 200/100 with occasional PVCs. Family and EMR provide collateral information. He had been seen in the ED and transferred to [facility] earlier this year because in June he had an esophageal rupture. History of an empyema for which chest tube placed and trach performed. Had been discharged to a facility 10/08/23 and then went home briefly before re-presenting to the ED at [facility] and being transferred again to [facility] for empyema. Had procedure performed (possibly VATS with rib resection by 's description). His doctor at [facility] was Ryan (spelling?), doesn't know what speciality. He was discharged to facility again and recently discharged home where he has been receiving PT and home health care services through [facility]. Recent diagnosis lung cancer. Patient saw a computer technology instructor/oncologist in this area today (name unknown) and was told his oxygen saturation was low so was advised his supplemental O2 be moved from 3LPM to 5LPM. Plans for an upcoming PET scan. He declined thoughout the day and fell over per who states she started CPR - unclear if he was breathing or had a pulse. Related Data Home Medications Medication Instructions Recorded Confirmed amoxicillin 500 mg capsule mg 10/10/23 10/10/23 atenolol 25 mg tablet mg 10/10/23 ciprofloxacin HCl 500 mg tablet mg 10/10/23 magnesium oxide 400 mg (241.3 mg mg 10/10/23 magnesium) tablet pantoprazole 40 mg tablet,delayed mg PO 10/10/23 release pyridoxine (vitamin B6) 50 mg mg 10/10/23 tablet thiamine HCl (vitamin B1) 100 mg mg 10/10/23 tablet (Vitamin B-1) zinc sulfate 50 mg zinc (220 mg) mg 10/10/23 capsule Allergies Allergy/AdvReac Type Severity Reaction Status Date / Time No Known Allergies Allergy Verified 10/10/23 17:53 [facility] Past Medical History Medical History (Updated 11/10/23 @ 19:16 by Mary Milian MD) 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 EYES: Non injected, non icteric ENT: Nares clear, no rhinorrhea or epistaxis. ETT in place. Front tooth chipped. NECK: Supple. Well healed tracheostomy scar. CHEST: Scar(s) on left chest from prior chest tube. Coarse breath sounds bilaterally. HEART: Tachycardic rate and rhythm. . ABDOMEN: Soft, nondistended. EXTREMITIES: No edema. IO RLE. SKIN: Warm, dry, no rash. NEURO: Occasional spontaneous movements, x4 extremities Course Vital Signs Vital signs: Vital Signs Pulse Rate 132 H 11/07/23 21:37 Respiratory Rate 14 11/07/23 21:37 Pulse Oximetry 100 11/07/23 21:37 Oxygen Delivery Bag Valve Mask 11/07/23 21:37 Temperature 98.5 F 11/08/23 00:47 Pulse Rate 104 H 11/08/23 04:42 Respiratory Rate 22 H 11/08/23 04:42 Blood Pressure 93/65 L 11/08/23 04:42 Pulse Oximetry 92 11/08/23 04:42 Oxyge
[2023-11-07] MEDS: NALOXONE HCL 0.4 MG/ML VIAL IV PUSH (21:51)
[2023-11-07] MEDS: FENTANYL 2,500MCG/NS250ML(*CRX 2,500 MCG/250 ML BAG IV CONT (22:04)
[2023-11-07 22:21] LABS: Alveolar/Arterial O2 Gradient 487.1 mmHg; Base Excess ABG 1.6 mEq/l (+/-2.0); Fractional Inspired Oxygen 100 %; HCO3 ABG 28.9 mEq/l (22.0-26.0); Oxygen Content ABG 12.5 %vol (16.0-22.0); Oxygen Saturation ABG 98.9 % (95.0-100.0); Oxyhemoglobin 98.1 % THb (90.0-100.0); PO2 ABG 164.1 mmHg (80.0-100.0); PO2 FiO2 Ratio Arterial Blood 1.64 %; Total Hemoglobin 8.8 g/dL (12.0-18.0)
[2023-11-07 22:22] LABS: Device VENTILATOR; PCO2 ABG 61.8 mmHg (35.0-45.0); Site Drawn RIGHT BRACHIAL; pH ABG 7.288 (7.350-7.450)
[2023-11-07 22:23] LABS: Arterial Blood Gas PEEP 5 cmH2O; Arterial Blood Gas Tidal Volume 450 ml; Arterial Blood Gas Vent Mode CMV; Arterial Blood Gas Ventilator rate 16 /MIN
[2023-11-07 22:27] LABS: Basophils Percent Auto 0.1 % (0.2-1.2); Hematocrit 22.3 % (42.0-52.0); Hemoglobin 7.5 g/dL (14.0-18.0); Immature Granulocyte Absolute 0.15 K/mm3 (0.00-0.031); Immature Granulocyte Percent A 1.4 % (0-0.5); Lymphocytes Absolute Auto 0.95 K/mm3 (0.9-3.2); Mean Corpuscular HGB Conc 33.6 g/dl (32-36); Mean Corpuscular Hemoglobin 27.9 pg (26-34); Mean Corpuscular Volume 82.9 fl (80-100); Mean Platelet Volume 8.9 fl (7.4-10.4); Monocytes Absolute Auto 0.6 K/mm3 (0.1-0.6); Monocytes Percent Auto 5.9 % (2.6-8.5); Neutrophils Absolute Auto 8.8 K/mm3 (1.3-6.7); Neutrophils Percent Auto 83.6 % (45.5-73.1); Platelet Count Result 374 k/mm3 (150-375); Red Blood Count 2.69 M/mm3 (4.6-6.20); White Blood Count 10.5 K/mm3 (4.5-10.0)
[2023-11-07 22:36] LABS: INR 1.4; Prothrombin Time 17.3 Seconds (11.1-14.7)
[2023-11-07 22:37] LABS: Partial Thromboplastin Time 32.6 Seconds (22.3-36.8)
[2023-11-07 22:40] LABS: D Dimer 2.13 ug/mL (<0.48)
[2023-11-07 22:41] LABS: Acetaminophen < 10 ug/mL (10-30); Ammonia 37 umol/L (9-30); Ethanol < 10 mg/dL (<10); Salicylate < 1.0 mg/dL (2-20)
[2023-11-07 22:41] LABS: Barbiturate Screen Urine Negative (Negative); Benzodiazepines Screen Urine Negative (Negative)
[2023-11-07 22:43] LABS: Appearance Urine Clear (Clear); Bacteria Urine Rare /hpf; Bilirubin Urine Negative (Negative); Blood Urine Trace (Negative); Budding Yeast Urine Present /hpf; Color Urine Yellow (Yellow); Glucose Urine UA 1+ mg/dL (Negative); Hyaline Casts Urine Present /lpf; Ketones Urine Negative (Negative); Leukocyte Esterase Ur Negative LEU/UL (Negative); Need Manual Microscopic Reviewed; Nitrate Urine Negative (Negative); Protein Urine 3+ mg/dL (Negative); Specific Grav Ur 1.014 (1.001-1.035); Squamous Epithelial Cell Urine Occasional /hpf (Few); Urobilinogen Urine 0.2 mg/dL (<2.0)
[2023-11-07 22:44] LABS: Amphetamine Screen Urine Negative (Negative); Cannabinoid Screen Urine Positive (Negative); Cocaine Screen Urine Negative (Negative); Methadone Screen Urine Negative (Negative); Opiate Screen Urine Negative (Negative); Phencyclidine Screen Urine Negative (Negative)
[2023-11-07 22:45] LABS: Alanine Aminotransferase 107 U/L (6-50); Albumin Level 3.2 g/dL (3.5-5.1); Alkaline Phosphatase 331 U/L (38-126); Anion Gap 8 mmol/L (4-12); Aspartate Amino Transferase 47 U/L (17-59); Bilirubin,Total 0.4 mg/dL (0.2-1.3); Blood Urea Nitrogen 8 mg/dL (9-20); Calcium 7.7 mg/dL (8.4-10.2); Carbon Dioxide 29 mmol/L (22-30); Chloride 77 mmol/L (98-107); Creatine Kinase 64 U/L (55-170); Estimated CRCL calculation 126 ml/min; Estimated Glomerular Filt Rate > 60; Glucose 153 mg/dL (65-110); Potassium 3.7 mmol/L (3.4-5.0); Sodium 114 mmol/L (137-145)
--- NOTE | 2023-11-07 22:47 | PC.NURSE ---
Family at bedside now and states that patient went to the bathroom and collapsed.
[2023-11-07 22:53] LABS: NT Pro B Type Natriuretic Pept 2110 pg/mL (19.9-100); Troponin I < 0.012 ng/mL (0.000-0.034)
[2023-11-07 22:55] LABS: Add Urine Microscopic? YES
[2023-11-07 22:59] LABS: Influenza A QL RT-PCR Negative (Negative); Influenza B QL RT-PCR Negative (Negative); RSV RNA, RT-PCR Negative (Negative); SARS-CoV-2 RNA PCR Negative (Negative)
[2023-11-07] MEDS: FUROSEMIDE INJ 40 MG/4 ML VIAL IV PUSH (23:04)
[2023-11-07 23:25] LABS: Magnesium 1.3 mg/dL (1.6-2.3)
[2023-11-07 23:36] LABS: Lactic Acid Reflex 2.2 mmol/L (0.7-2.0)
[2023-11-07] MEDS: MIDAZOLAM 100MG/NS 100ML(*CRX) 100 MG/100 ML BAG IV CONT (23:55)
[2023-11-08] VITALS (23 sets, daily range): BP systolic 56–100; BP diastolic 42–83; PULSE 79–123; RESP 18–22; TEMP 36.9; O2SAT 92–100
[2023-11-08 00:01] LABS: Creatinine Urine 8.3 mg/dL; Sodium Urine Random 76 meq/L
[2023-11-08] MEDS: CEFEPIME 1 GM/NS 50 ML 1 GM/50 ML BAG IVPB (00:02)
[2023-11-08] MEDS: SODIUM CHLORIDE 0.9% IV 100 ML 999 ML (00:24)
[2023-11-08] MEDS: CALCIUM GLUCONATE 1,000 MG/10 ML VIAL 1000 MG IV PUSH (00:24)
[2023-11-08] MEDS: NOREPINEPHRINE 8 MG/D5W 250 ML 8 MG/250 ML BAG 9.38 MG IV CONT (00:34)
[2023-11-08] MEDS: MAGNESIUM SULF 1 GM/D5W 100 ML 1 GM/100 ML BAG IVPB (00:59)
[2023-11-08 01:19] LABS: MRSA (PCR) DETECTED (NOT DETECTE)
[2023-11-08 01:21] LABS: Reflex Lactic Acid Yes or No Add Lactic
[2023-11-08] MEDS: VANCOMYCIN 1,500 MG/NS 500 ML 1,500 MG/500 ML BAG 250 MG IVPB (02:00)
[2023-11-08 02:43] LABS: Lactic Acid 2.5 mmol/L (0.7-2.0)
--- NOTE | 2023-11-08 05:08 | PC.NURSE ---
Per EDP Dr. Milian she will order a Dopamine drip for flight team in case they need while transporting the patient.
[2023-11-11 15:43] LABS: Osmolality, Urine 243 mOsm/kg (50-1200)
== END 2023-11-08 05:45 | disposition short-term general hospital (02) ==
PROVIDERS: Emergency Provider Student in an Organized Health Care Education/Training Program
DX: J96.00 Acute respiratory failure, unspecified whether with hypoxia or hypercapnia (principal); D72.829 Elevated white blood cell count, unspecified; D64.9 Anemia, unspecified; E87.1 Hypo-osmolality and hyponatremia; R41.82 Altered mental status, unspecified; E88.09 Other disorders of plasma-protein metabolism, not elsewhere classified; E83.51 Hypocalcemia; I50.9 Heart failure, unspecified; F12.90 Cannabis use, unspecified, uncomplicated; I63.89 Other cerebral infarction; A49.02 Methicillin resistant Staphylococcus aureus infection, unspecified site; J18.9 Pneumonia, unspecified organism; T17.890A Other foreign object in other parts of respiratory tract causing asphyxiation, initial encounter; Z99.81 Dependence on supplemental oxygen; W44.F9XA Other object of natural or organic material, entering into or through a natural orifice, initial encounter; Z20.822 Contact with and (suspected) exposure to COVID-19
CPT/HCPCS: 36556; 36415; 36600; 70450; 71045; 71275; 80053; 80307; 81001; 82140; 82550; 82570; 82805; 82948; 83605; 83735; 83880; 83935; 84300; 84443; 84484; 85025; 85380; 85610; 85730; 87040; 87086; 87637; 87641; 93005; 94002; 96365; 96366; 96367; 96375; 99291; C1751; J0612; J0692; J1940; J2250; J2310; J3010; J3370; J3475; J7030; Q9967